=== PATIENT | female | born 1980 | race Caucasian/White ===

== ENCOUNTER 2016-07-26 00:21 | Emergency (ER) | payer MEDICAID ==
[~2016-07-26] VITALS: Ht 162.6 cm; Wt 110.0 kg
[~2016-07-26 00:21] MED LIST: ALBUS PO; CYCL-36 PO; HYDR-2768 PO; LATU80TA PO; LEVO25TA36 PO
[2016-07-26 00:38] VITALS: BP 111/68; PULSE 85; RESP 14; TEMP 98.3; O2SAT 97
[2016-07-26] MEDS ORDERED: AMOX125C CHEW (00:50)
[2016-07-26] MEDS ORDERED: IBUP800T23 PO (00:50)
[2016-07-26] MEDS ORDERED: ZIPR1CAP6 PO (00:50)
--- NOTE | 2016-07-26 01:19 | PD ---
HPI Chief Complaint: Psychiatric Symptoms Time Seen by Provider: 01:12 Travel History International Travel<30 days: No Contact w/Intl Traveler<30days: No Traveled to known affect area: No History of Present Illness HPI 35-year-old white female presents to emergency department under [place] act by PD. The patient performs superficial cutting to her right forearm. She states that she has a history of self mutilation/cutting. She states that she typically does this for attention. She had gotten into an argument with her significant other. She states that" he pushed all of my buttons". She denies any suicidal or homicidal ideation. No toxic ingestions. She does smoke cigarettes. She admits to smoking crack the day before. She denies any other drugs or alcohol. Denies . PFSH Past Medical History Narrative Medical Bipolar, asthma, chronic back pain Bipolar Disorder: Yes Diminished Hearing: No Musculoskeletal: Yes (chronic back pain) Immunizations Current: Yes Thyroid Disease: Yes Triglycerides - High: Yes ?: Not LMP: 07/25/16 : 0 Past Surgical History Narrative Surgical Cholecystectomy, tonsillectomy, bilateral myringotomy tubes. Cholecystectomy: Yes Tonsillectomy: Yes Tympanostomy Tube: Yes Social History Alcohol Use: No Tobacco Use: Yes ("e cigarette") Substance Use: Yes (crack cocaine) Allergies-Medications (Allergen,Severity, Reaction): Coded Allergies: Bee Sting (Verified Allergy, Severe, Anaphylaxis, 07/26/16) EYES PUFFY, THROAT SWELL Corticosteroids (Verified Allergy, Severe, Swelling, 07/26/16) THROAT Hydrocodone (Verified Allergy, Severe, Anaphylaxis, 07/26/16) Red Dyes - Various (Verified Allergy, Intermediate, Irritability/Anxiety, 07/26/16) Reported Meds & Prescriptions Reported Meds & Active Scripts Active Reported Ziprasidone Unknown Strength Cap Unknown Dose PO BID Ibuprofen 800 Mg Tab 800 Mg PO Q6HR PRN Amoxicillin 125 Mg Chew Unknown Dose CHEW TID Review of Systems Except as stated in HPI: all other systems reviewed are Neg Psychiatric: Positive: Mood Disorder, Substance Abuse, No: Anxiety, Depression , Suicidal Ideations, Disorder of Thought, Homicidal Ideation Physical Exam Narrative GENERAL: Morbidly obese., well-developed patient. SKIN: Warm and dry. Patient has old scars as well as new superficial suicide gesture cutting to the right forearm. There is old scars to the left forearm. HEAD: Normocephalic and atraumatic. EYES: No scleral icterus. No injection or drainage. ENT: No nasal drainage noted. Mucous membranes pink. Airway patent. NECK: Supple, trachea midline. Moves head freely without obvious discomfort. CARDIOVASCULAR: Regular rate and rhythm without murmurs, gallops, or rubs. RESPIRATORY: Breath sounds equal bilaterally. No accessory muscle use. GASTROINTESTINAL: Abdomen soft, non-tender, obese. EXTREMITIES: No cyanosis or edema. BACK: Nontender without obvious deformity. No CVA tenderness. NEURO: Patient is alert and oriented. no sensorimotor deficits. Nonfocal. Normal speech. PSYCH: No delusions. No auditory or visual hallucinations. Data Data Last Documented VS Vital Signs Date Time Temp Pulse Resp B/P Pulse Ox O2 Delivery O2 Flow Rate FiO2 07/26/16 00:43 85 14 07/26/16 00:38 98.3 111/68 97 Orders Complete Blood Count With Diff (07/26/16 01:04) Comprehensive Metabolic Panel (07/26/16 01:04) Ed Urine Pregnancytest Poc (07/26/16 01:04) Psych Screen (07/26/16 01:04) Drug Screen, Random Urine (07/26/16 01:04) Alcohol (Ethanol) (07/26/16 01:04) Salicylates (Aspirin) (07/26/16 01:04) Tylenol (Acetaminophen) (07/26/16 01:04) Labs Laboratory Tests Test 07/26/16 01:15 White Blood Count 9.6 TH/MM3 Red Blood Count 5.21 MIL/MM3 Hemoglobin 14.5 GM/DL Hematocrit 43.3 % Mean Corpuscular Volume 83.0 FL Mean Corpuscular Hemoglobin 27.8 PG Mean Corpuscular Hemoglobin 33.5 % Concent Red Cell Distribution Width 13.8 % Platelet Count 190 TH/MM3 Mean Platelet Volume 9.9 FL Neutrophils (%) (Auto) 64.2 % Lymphocytes (%) (Auto) 20.2 % Monocytes (%) (Auto) 9.5 % Eosinophils (%) (Auto) 4.9 % Basophils (%) (Auto) 1.2 % Neutrophils # (Auto) 6.2 TH/MM3 Lymphocytes # (Auto) 1.9 TH/MM3 Monocytes # (Auto) 0.9 TH/MM3 Eosinophils # (Auto) 0.5 TH/MM3 Basophils # (Auto) 0.1 TH/MM3 CBC Comment DIFF FINAL Differential Comment Sodium Level 143 MEQ/L Potassium Level 4.0 MEQ/L Chloride Level 111 MEQ/L Carbon Dioxide Level 26.6 MEQ/L Anion Gap 5 MEQ/L Blood Urea Nitrogen 26 MG/DL Creatinine 0.95 MG/DL Estimat Glomerular Filtration 68 ML/MIN Rate Random Glucose 94 MG/DL Calcium Level 8.4 MG/DL Total Bilirubin 0.3 MG/DL Aspartate Amino Transf 13 U/L (AST/SGOT) Alanine Aminotransferase 24 U/L (ALT/SGPT) Alkaline Phosphatase 55 U/L Total Protein 7.0 GM/DL Albumin 3.6 GM/DL Salicylates Level 4.1 MG/DL Urine Opiates Screen NEG Acetaminophen Level LESS THAN 2.0 MCG/ML Urine Barbiturates Screen NEG Urine Amphetamines Screen POS Urine Benzodiazepines Screen NEG Urine Cocaine Screen POS Urine Cannabinoids Screen NEG Ethyl Alcohol Level 4 MG/DL MDM Medical Decision Making Medical Screen Exam Complete: Yes Emergency Medical Condition: Yes Medical Record Reviewed: Yes Interpretation(s) Laboratory Tests Test 07/26/16 01:15 White Blood Count 9.6 TH/MM3 Red Blood Count 5.21 MIL/MM3 Hemoglobin 14.5 GM/DL Hematocrit 43.3 % Mean Corpuscular Volume 83.0 FL Mean Corpuscular Hemoglobin 27.8 PG Mean Corpuscular Hemoglobin 33.5 % Concent Red Cell Distribution Width 13.8 % Platelet Count 190 TH/MM3 Mean Platelet Volume 9.9 FL Neutrophils (%) (Auto) 64.2 % Lymphocytes (%) (Auto) 20.2 % Monocytes (%) (Auto) 9.5 % Eosinophils (%) (Auto) 4.9 % Basophils (%) (Auto) 1.2 % Neutrophils # (Auto) 6.2 TH/MM3 Lymphocytes # (Auto) 1.9 TH/MM3 Monocytes # (Auto) 0.9 TH/MM3 Eosinophils # (Auto) 0.5 TH/MM3 Basophils # (Auto) 0.1 TH/MM3 CBC Comment DIFF FINAL Differential Comment Sodium Level 143 MEQ/L Potassium Level 4.0 MEQ/L Chloride Level 111 MEQ/L Carbon Dioxide Level 26.6 MEQ/L Anion Gap 5 MEQ/L Blood Urea Nitrogen 26 MG/DL Creatinine 0.95 MG/DL Estimat Glomerular Filtration 68 ML/MIN Rate Random Glucose 94 MG/DL Calcium Level 8.4 MG/DL Total Bilirubin 0.3 MG/DL Aspartate Amino Transf 13 U/L (AST/SGOT) Alanine Aminotransferase 24 U/L (ALT/SGPT) Alkaline Phosphatase 55 U/L Total Protein 7.0 GM/DL Albumin 3.6 GM/DL Salicylates Level 4.1 MG/DL Urine Opiates Screen NEG Acetaminophen Level LESS THAN 2.0 MCG/ML Urine Barbiturates Screen NEG Urine Amphetamines Screen POS Urine Benzodiazepines Screen NEG Urine Cocaine Screen POS Urine Cannabinoids Screen NEG Ethyl Alcohol Level 4 MG/DL Differential Diagnosis MDM: High Differential diagnoses: Schizophrenia, schizoaffective disorder, bipolar, anxiety, depression, adjustment reaction, mood disorder NOS, ODD, depressive disorder NOS, dementia, dementia with agitation, psychosis NOS, substance induced mood disorder, intermittent explosive disorder, Asperger syndrome, infection,electrolyte abnormality, malingering. Narrative Course Mental health screening discussed with the patient. Psychiatric screen ordered. The patient's been medically cleared. This is adjustment reaction, self mutilation, medical clearance for psychological evaluation Diagnosis Primary Impression: Adjustment reaction Qualified Code: F43.20 - Adjustment disorder, unspecified type Additional Impressions: Self-mutilation Medical clearance for psychiatric admission Polysubstance abuse Condition: Stable John Paul Stephenson Jul 26, 2016 01:19
[2016-07-26 01:22] LABS: AUTOMATED NEUTROPHIL # 6.2 TH/MM3 (1.8-7.7); BASOPHIL # 0.1 TH/MM3 (0-0.2); BASOPHIL % 1.2 % (0.0-2.0); EOSINOPHIL # 0.5 TH/MM3 (0-0.4); EOSINOPHIL % 4.9 % (0.0-4.0); HEMATOCRIT 43.3 % (35.0-46.0); HEMO FLAGS DIFF FINAL; LYMPH % 20.2 % (9.0-44.0); LYMPHOCYTE # 1.9 TH/MM3 (1.0-4.8); MEAN CORPUSCULAR HEMOGLOBIN 27.8 PG (27.0-34.0); MEAN CORPUSCULAR HGB CONC 33.5 % (32.0-36.0); MONO % 9.5 % (0.0-8.0); NEUT % 64.2 % (16.0-70.0); PLATELET COUNT 190 TH/MM3 (150-450); RED BLOOD COUNT 5.21 MIL/MM3 (4.00-5.30); RED CELL DISTRIBUTION WIDTH 13.8 % (11.6-17.2); WHITE BLOOD COUNT 9.6 TH/MM3 (4.0-11.0)
[2016-07-26 01:33] LABS: AMPHETAMINE, URINE POS (NEG); BARBITURATES, URINE NEG (NEG); COCAINE, URINE POS (NEG)
[2016-07-26 01:39] LABS: ACETAMINOPHEN LESS THAN 2.0 MCG/ML (10.0-30.0); ALT (GPT) 24 U/L (10-53); ANION GAP 5 MEQ/L (5-15); AST (GOT) 13 U/L (15-37); BICARBONATE 26.6 MEQ/L (21.0-32.0); BLOOD UREA NITROGEN 26 MG/DL (7-18); CHLORIDE 111 MEQ/L (98-107); GLOMERULAR FILTRATION RATE 68 ML/MIN (>89); SODIUM (NA) 143 MEQ/L (136-145)
[2016-07-26 01:41] LABS: ALKALINE PHOSPHATASE 55 U/L (45-117); TOTAL BILIRUBIN ADULT 0.3 MG/DL (0.2-1.0)
[2016-07-26 09:40] VITALS: BP 128/74; PULSE 69; RESP 16; O2SAT 97
--- NOTE | 2016-07-26 10:31 | PD ---
History of Present Illness Chief Complaint: Psychiatric Symptoms Time Seen by Provider: 10:20 Travel History International Travel<30 Days: No Contact w/Intl Traveler<30days: No Known affected area: No Legal Status Legal Status: [place] Act [place] Act Signed By: Zoey Gerber [place] Act Comment: 2016 @ [id number] History of Present Illness: History of Present Illness HPI 35-year-old white female with history of PTSD as well bipolar disorder presents to emergency department under [place] act by PD. The patient performs superficial cutting to her right forearm. She states that she has a history of self mutilation/cutting. She states that she typically does this for attention. She had gotten into an argument with her significant other. She states that" he pushed all of my buttons". She denies any suicidal or homicidal ideation. No toxic ingestions. She does smoke cigarettes. She admits to smoking crack the day before. She denies any other drugs or alcohol. Denies . Patient seen. EMR reviewed. Alert and oriented, calm. States " The police gave me a choice either come to [place] or go to penit[facility]iary". I cut to get attention. Denies any suicidal or homicidal ideation. PFSH Past Medical History Bipolar Disorder: Yes Diminished Hearing: No Musculoskeletal: Yes (chronic back pain) Immunizations Current: Yes Thyroid Disease: Yes Triglycerides - High: Yes ?: Not LMP: 07/25/16 : 0 Past Surgical History Cholecystectomy: Yes Tonsillectomy: Yes Tympanostomy Tube: Yes Psychiatric History Psychiatric History Hx Psychiatric Treatment: BIPOLAR DISORDER, PTSD History of Inpatient Treatment: No Guns or firearms in home: No Social History female. Lives with a boyfriend. On disability. Hx Alcohol Use: No Hx Tobacco Use: Yes ("e cigarette") Hx Substance Use: No Hx of Substance Use Treatment: No Family Psychiatric History Denies Allergies-Medications (Allergen,Severity, Reaction): Coded Allergies: Bee Sting (Verified Allergy, Severe, Anaphylaxis, 07/26/16) EYES PUFFY, THROAT SWELL Corticosteroids (Verified Allergy, Severe, Swelling, 07/26/16) THROAT Hydrocodone (Verified Allergy, Severe, Anaphylaxis, 07/26/16) Red Dyes - Various (Verified Allergy, Intermediate, Irritability/Anxiety, 07/26/16) Reported Meds & Prescriptions Reported Meds & Active Scripts Active Reported Ziprasidone Unknown Strength Cap Unknown Dose PO BID Ibuprofen 800 Mg Tab 800 Mg PO Q6HR PRN Amoxicillin 125 Mg Chew Unknown Dose CHEW TID Exam Alert: Yes [place]: Person (ox4) Mood: Calm Affect: Appropriate Speech: Clear, Logical Eye Contact: Indirect Memory Intact: Comment (Not impaired) Hallucinations: Other (denies any) Delusions: No MDM Medical Decision Making Medical Record Reviewed: Yes Assessment/Plan Lift BA Cleared from psychiatry for follow up Orders Complete Blood Count With Diff (07/26/16 01:04) Comprehensive Metabolic Panel (07/26/16 01:04) Ed Urine Pregnancytest Poc (07/26/16 01:04) Psych Screen (07/26/16 01:04) Drug Screen, Random Urine (07/26/16 01:04) Alcohol (Ethanol) (07/26/16 01:04) Salicylates (Aspirin) (07/26/16 01:04) Tylenol (Acetaminophen) (07/26/16 01:04) Diet Regular Basic (07/26/16 Breakfast) Results Vital Signs Date Time Temp Pulse Resp B/P Pulse Ox O2 Delivery O2 Flow Rate FiO2 07/26/16 09:40 69 16 128/74 97 Room Air 07/26/16 00:43 85 14 07/26/16 00:38 98.3 85 14 111/68 97 Laboratory Tests Test 07/26/16 01:15 White Blood Count 9.6 Red Blood Count 5.21 Hemoglobin 14.5 Hematocrit 43.3 Mean Corpuscular Volume 83.0 Mean Corpuscular Hemoglobin 27.8 Mean Corpuscular Hemoglobin 33.5 Concent Red Cell Distribution Width 13.8 Platelet Count 190 Mean Platelet Volume 9.9 Neutrophils (%) (Auto) 64.2 Lymphocytes (%) (Auto) 20.2 Monocytes (%) (Auto) 9.5 Eosinophils (%) (Auto) 4.9 Basophils (%) (Auto) 1.2 Neutrophils # (Auto) 6.2 Lymphocytes # (Auto) 1.9 Monocytes # (Auto) 0.9 Eosinophils # (Auto) 0.5 Basophils # (Auto) 0.1 CBC Comment DIFF FINAL Differential Comment Sodium Level 143 Potassium Level 4.0 Chloride Level 111 Carbon Dioxide Level 26.6 Anion Gap 5 Blood Urea Nitrogen 26 Creatinine 0.95 Estimat Glomerular Filtration 68 Rate Random Glucose 94 Calcium Level 8.4 Total Bilirubin 0.3 Aspartate Amino Transf 13 (AST/SGOT) Alanine Aminotransferase 24 (ALT/SGPT) Alkaline Phosphatase 55 Total Protein 7.0 Albumin 3.6 Salicylates Level 4.1 Urine Opiates Screen NEG Acetaminophen Level LESS THAN 2.0 Urine Barbiturates Screen NEG Urine Amphetamines Screen POS Urine Benzodiazepines Screen NEG Urine Cocaine Screen POS Urine Cannabinoids Screen NEG Ethyl Alcohol Level 4 Diagnosis Primary Impression: Adjustment reaction Additional Impressions: Medical clearance for psychiatric admission Self-mutilation Polysubstance abuse Psychiatrically Cleared: Yes Condition: Stable Problem Qualifiers Primary Impression: Adjustment reaction Qualified Code: F43.20 - Adjustment disorder, unspecified type Waleska Alanis Jul 26, 2016 10:30
== END 2016-07-26 10:42 | disposition home or self-care (01) ==
LOC: NEPD 00:21
DX: Z91.5 Personal history of self-harm (principal); F19.10 Other psychoactive substance abuse, uncomplicated; F15.10 Other stimulant abuse, uncomplicated; F14.10 Cocaine abuse, uncomplicated; F43.10 Post-traumatic stress disorder, unspecified; F31.9 Bipolar disorder, unspecified; F17.290 Nicotine dependence, other tobacco product, uncomplicated
CPT/HCPCS: 80053; 80307; 84703; 85025; 99284

== ENCOUNTER 2016-11-04 15:25 | Emergency (ER) | payer MEDICAID, OTHER ==
[~2016-11-04 15:25] MED LIST changes: -ALBUS PO; +AMOX125C CHEW; -CYCL-36 PO; -HYDR-2768 PO; +IBUP800T23 PO; -LATU80TA PO; -LEVO25TA36 PO; +ZIPR1CAP6 PO
[2016-11-04 16:00] VITALS: BP 122/72; PULSE 110; RESP 18; TEMP 98.8; O2SAT 94
--- NOTE | 2016-11-04 16:32 | PD ---
HPI Chief Complaint: Psychiatric Symptoms Time Seen by Provider: 16:29 Travel History International Travel<30 days: No Contact w/Intl Traveler<30days: No Traveled to known affect area: No History of Present Illness HPI This patient was examined in the presence of a female sitter. 36-year-old female presents under [place] act initiated by the Police Department. According to her paperwork, "history of suicidal statements and temps. While arresting her boyfriend Shaun stated she would kill herself if he went to [facility] (he went to [facility])." The patient reports that she said that because she "cannot live without my man." She reports that although she said that to the police she has no desire to hurt herself or anyone else. She reports that in the past she has cut her wrists with knives for attention but never to actually try to kill herself. She has no medical complaints at this time. PFSH Past Medical History Bipolar Disorder: Yes Diminished Hearing: No Musculoskeletal: Yes (chronic back pain) Immunizations Current: Yes Thyroid Disease: Yes Triglycerides - High: Yes : 0 Past Surgical History Cholecystectomy: Yes Tonsillectomy: Yes Tympanostomy Tube: Yes Social History Alcohol Use: No Tobacco Use: Yes ("e cigarette") Substance Use: No Allergies-Medications (Allergen,Severity, Reaction): Coded Allergies: amcinonide (Unverified Allergy, Severe, Swelling, 10/05/16) THROAT beclomethasone (Unverified Allergy, Severe, Swelling, 10/05/16) THROAT bee venom protein (honey bee) (Unverified Allergy, Severe, Anaphylaxis, ) EYES PUFFY, THROAT SWELL betamethasone (Unverified Allergy, Severe, Swelling, 10/05/16) THROAT desoximetasone (Unverified Allergy, Severe, Swelling, 10/05/16) THROAT dexamethasone (Unverified Allergy, Severe, Swelling, 10/05/16) THROAT fludrocortisone (Unverified Allergy, Severe, Swelling, 10/05/16) THROAT flunisolide (Unverified Allergy, Severe, Swelling, 10/05/16) THROAT fluocinolone acetonide (Unverified Allergy, Severe, Swelling, 10/05/16) THROAT fluocinonide (Unverified Allergy, Severe, Swelling, 10/05/16) THROAT fluorometholone (Unverified Allergy, Severe, Swelling, 10/05/16) THROAT flurandrenolide (Unverified Allergy, Severe, Swelling, 10/05/16) THROAT fluticasone (Unverified Allergy, Severe, Swelling, 10/05/16) THROAT fluticasone furoate (Unverified Allergy, Severe, Swelling, 10/05/16) THROAT hydrocodone (Unverified Allergy, Severe, Anaphylaxis, 10/05/16) hydrocortisone (Unverified Allergy, Severe, Swelling, 10/05/16) THROAT methylprednisolone (Unverified Allergy, Severe, Swelling, 10/05/16) THROAT mometasone furoate (Unverified Allergy, Severe, Swelling, 10/05/16) THROAT prednisolone (Unverified Allergy, Severe, Swelling, 10/05/16) THROAT prednisone (Unverified Allergy, Severe, Swelling, 10/05/16) THROAT triamcinolone (Unverified Allergy, Severe, Swelling, 10/05/16) THROAT red dye (Unverified Allergy, Intermediate, Irritability/Anxiety, 10/05/16) Reported Meds & Prescriptions Reported Meds & Active Scripts Active Reported Ziprasidone Unknown Strength Cap Unknown Dose PO BID Ibuprofen 800 Mg Tab 800 Mg PO Q6HR PRN Amoxicillin 125 Mg Chew Unknown Dose CHEW TID Review of Systems Except as stated in HPI: all other systems reviewed are Neg Physical Exam Narrative GENERAL: Well-developed well-nourished female in no acute distress SKIN: Warm and dry. Old linear scars noted to the forearms and wrists. HEAD: Atraumatic. Normocephalic. EYES: Pupils equal and round. No scleral icterus. No injection or drainage. ENT: No nasal bleeding or discharge. Mucous membranes pink and moist. NECK: Trachea midline. No JVD. CARDIOVASCULAR: Regular rate and rhythm. No murmur appreciated. RESPIRATORY: No accessory muscle use. Clear to auscultation. Breath sounds equal bilaterally. GASTROINTESTINAL: Abdomen soft, non-tender, nondistended. Hepatic and splenic margins not palpable. MUSCULOSKELETAL: No obvious deformities. No clubbing. No cyanosis. No edema. NEUROLOGICAL: Awake and alert. No obvious cranial nerve deficits. Motor grossly within normal limits. Normal speech. PSYCHIATRIC: Appropriate mood and affect; insight and judgment normal. Data Data Last Documented VS Vital Signs Date Time Temp Pulse Resp B/P (MAP) Pulse Ox O2 Delivery O2 Flow Rate FiO2 11/04/16 16:00 98.8 110 18 122/72 (89) 94 Orders Orders Complete Blood Count With Diff (11/04/16 16:30) Comprehensive Metabolic Panel (11/04/16 16:30) Ed Urine Pregnancytest Poc (11/04/16 16:30) Psych Screen (11/04/16 16:30) Drug Screen, Random Urine (11/04/16 16:30) Alcohol (Ethanol) (11/04/16 16:30) Diet Regular Basic (11/04/16 Dinner) Labs Laboratory Tests Test 11/04/16 17:10 White Blood Count 13.5 TH/MM3 Red Blood Count 5.31 MIL/MM3 Hemoglobin 14.8 GM/DL Hematocrit 45.2 % Mean Corpuscular Volume 85.1 FL Mean Corpuscular Hemoglobin 27.8 PG Mean Corpuscular Hemoglobin Concent 32.7 % Red Cell Distribution Width 14.2 % Platelet Count 226 TH/MM3 Mean Platelet Volume 9.4 FL Neutrophils (%) (Auto) 69.3 % Lymphocytes (%) (Auto) 16.9 % Monocytes (%) (Auto) 8.5 % Eosinophils (%) (Auto) 4.6 % Basophils (%) (Auto) 0.7 % Neutrophils # (Auto) 9.4 TH/MM3 Lymphocytes # (Auto) 2.3 TH/MM3 Monocytes # (Auto) 1.2 TH/MM3 Eosinophils # (Auto) 0.6 TH/MM3 Basophils # (Auto) 0.1 TH/MM3 CBC Comment DIFF FINAL Differential Comment Blood Urea Nitrogen 18 MG/DL Creatinine 1.08 MG/DL Random Glucose 86 MG/DL Total Protein 7.2 GM/DL Albumin 3.6 GM/DL Calcium Level 8.7 MG/DL Alkaline Phosphatase 57 U/L Aspartate Amino Transf (AST/SGOT) 20 U/L Alanine Aminotransferase (ALT/SGPT) 28 U/L Total Bilirubin 0.8 MG/DL Sodium Level 139 MEQ/L Potassium Level 4.1 MEQ/L Chloride Level 107 MEQ/L Carbon Dioxide Level 26.3 MEQ/L Anion Gap 6 MEQ/L Estimat Glomerular Filtration Rate 58 ML/MIN Ethyl Alcohol Level LESS THAN 3 MG/DL MDM Medical Decision Making Medical Screen Exam Complete: Yes Emergency Medical Condition: Yes Medical Record Reviewed: Yes Differential Diagnosis Adjustment reaction, acute psychosis, major depressive disorder, depressive disorder not otherwise specified, substance-induced mood disorder Narrative Course 36-year-old female here under [place] act. Mental health screening discussed with the patient. Psychiatric screen ordered. Laboratory is unremarkable. Urine test is negative. She is medically cleared for psychiatric disposition. Diagnosis Primary Impression: Medical clearance for psychiatric admission Sheldon Thompson Nov 04, 2016 16:31
[2016-11-04 17:52] LABS: AUTOMATED NEUTROPHIL # 9.4 TH/MM3 (1.8-7.7); BASOPHIL # 0.1 TH/MM3 (0-0.2); BASOPHIL % 0.7 % (0.0-2.0); EOSINOPHIL # 0.6 TH/MM3 (0-0.4); EOSINOPHIL % 4.6 % (0.0-4.0); HEMATOCRIT 45.2 % (35.0-46.0); HEMO FLAGS DIFF FINAL; LYMPH % 16.9 % (9.0-44.0); LYMPHOCYTE # 2.3 TH/MM3 (1.0-4.8); MEAN CELL VOLUME 85.1 FL (80.0-100.0); MEAN CORPUSCULAR HEMOGLOBIN 27.8 PG (27.0-34.0); MEAN CORPUSCULAR HGB CONC 32.7 % (32.0-36.0); MONO % 8.5 % (0.0-8.0); NEUT % 69.3 % (16.0-70.0); PLATELET COUNT 226 TH/MM3 (150-450); RED BLOOD COUNT 5.31 MIL/MM3 (4.00-5.30); RED CELL DISTRIBUTION WIDTH 14.2 % (11.6-17.2); WHITE BLOOD COUNT 13.5 TH/MM3 (4.0-11.0)
[2016-11-04 18:05] LABS: ANION GAP 6 MEQ/L (5-15); AST (GOT) 20 U/L (15-37); BICARBONATE 26.3 MEQ/L (21.0-32.0); BLOOD UREA NITROGEN 18 MG/DL (7-18); CHLORIDE 107 MEQ/L (98-107); GLOMERULAR FILTRATION RATE 58 ML/MIN (>89); POTASSIUM 4.1 MEQ/L (3.5-5.1); SODIUM (NA) 139 MEQ/L (136-145)
[2016-11-04 18:06] LABS: ALT (GPT) 28 U/L (10-53)
[2016-11-04 18:08] LABS: ALKALINE PHOSPHATASE 57 U/L (45-117); TOTAL BILIRUBIN ADULT 0.8 MG/DL (0.2-1.0)
[2016-11-04 18:15] LABS: ALCOHOL LESS THAN 3 MG/DL (0-5)
[2016-11-04 19:59] VITALS: BP 149/83; PULSE 107; RESP 22; TEMP 98.1; O2SAT 97
[2016-11-04] MEDS ORDERED: OLANZapine IM 10 MG VIAL IM ONE (21:15)
[2016-11-04 23:09] VITALS: RESP 18
[2016-11-05 02:42] VITALS: BP 110/64; PULSE 72; RESP 16
[2016-11-05 06:50] VITALS: BP 115/65; PULSE 81; RESP 16; O2SAT 96
--- NOTE | 2016-11-05 08:28 | PD ---
Physical Exam Narrative Informed by psych nurse that pt's [place] Act has been lifted by psychiatrist Dr. Yi. Pt was seen by previous provider and medically cleared for psych evaluation. Pt will be discharged with referral to [facility]. Data Data Last Documented VS Vital Signs Date Time Temp Pulse Resp B/P (MAP) Pulse Ox O2 Delivery O2 Flow Rate FiO2 11/05/16 06:50 81 16 115/65 (82) 96 11/04/16 19:59 98.1 Room Air Orders Orders Complete Blood Count With Diff (11/04/16 16:30) Comprehensive Metabolic Panel (11/04/16 16:30) Ed Urine Pregnancytest Poc (11/04/16 16:30) Psych Screen (11/04/16 16:30) Drug Screen, Random Urine (11/04/16 16:30) Alcohol (Ethanol) (11/04/16 16:30) Diet Regular Basic (11/04/16 Dinner) Olanzapine Inj (Zyprexa Inj) (11/04/16 21:15) Diet Regular Basic (11/05/16 Breakfast) Labs Laboratory Tests Test 11/04/16 17:10 White Blood Count 13.5 TH/MM3 Red Blood Count 5.31 MIL/MM3 Hemoglobin 14.8 GM/DL Hematocrit 45.2 % Mean Corpuscular Volume 85.1 FL Mean Corpuscular Hemoglobin 27.8 PG Mean Corpuscular Hemoglobin Concent 32.7 % Red Cell Distribution Width 14.2 % Platelet Count 226 TH/MM3 Mean Platelet Volume 9.4 FL Neutrophils (%) (Auto) 69.3 % Lymphocytes (%) (Auto) 16.9 % Monocytes (%) (Auto) 8.5 % Eosinophils (%) (Auto) 4.6 % Basophils (%) (Auto) 0.7 % Neutrophils # (Auto) 9.4 TH/MM3 Lymphocytes # (Auto) 2.3 TH/MM3 Monocytes # (Auto) 1.2 TH/MM3 Eosinophils # (Auto) 0.6 TH/MM3 Basophils # (Auto) 0.1 TH/MM3 CBC Comment DIFF FINAL Differential Comment Blood Urea Nitrogen 18 MG/DL Creatinine 1.08 MG/DL Random Glucose 86 MG/DL Total Protein 7.2 GM/DL Albumin 3.6 GM/DL Calcium Level 8.7 MG/DL Alkaline Phosphatase 57 U/L Aspartate Amino Transf (AST/SGOT) 20 U/L Alanine Aminotransferase (ALT/SGPT) 28 U/L Total Bilirubin 0.8 MG/DL Sodium Level 139 MEQ/L Potassium Level 4.1 MEQ/L Chloride Level 107 MEQ/L Carbon Dioxide Level 26.3 MEQ/L Anion Gap 6 MEQ/L Estimat Glomerular Filtration Rate 58 ML/MIN Ethyl Alcohol Level LESS THAN 3 MG/DL MDM Supervised Visit with [facility]: Yes Diagnosis Primary Impression: Adjustment disorder Qualified Codes: F43.20 - Adjustment disorder, unspecified Patient Instructions: General Instructions Departure Forms: Tests/Procedures Additional Instruction: Please follow up with [facility] as instructed. Return to the ED if symptoms worsen. Med/Other Pt SpecificInfo: No Change to Meds Disposition: 01 DISCHARGE HOME Condition: Stable Hansa Bhardwaj DO Nov 05, 2016 08:28
[2016-11-05 08:32] VITALS: BP 115/65; PULSE 81; RESP 16
--- NOTE | 2016-11-05 08:33 | PD.PSY.CON ---
Provisional Diagnosis Admission Date Date of consultation 11/05/2016 Roslyn I. 1. Adjustment disorder, unspecified 2. Cocaine abuse History of Present Illness Service Psychiatry Consult Requested By Emergency department Reason for Consult [place] act Primary Care Physician Mignon Domingo MD HPI Ms. Dunn is a 36-year-old female with a reported history of bipolar disorder who presents under a [place] act alleging that the patient threatened suicide while her boyfriend was being arrested I law enforcement. Reviewing the electronic medical record, I note the patient was seen in July of this year by the psychiatric nurse practitioner after engaging in nonsuicidal self- injurious behavior. Patient seen and examined. Chart reviewed. Case discussed with nurse in the J- pod. There has been no evidence of any suicidality or homicidality while the patient has been under observation in the J-[facility]. On my examination today, the patient says that she was upset at seeing that her boyfriend might be arrested and issued the suicidal threat as alleged by law enforcement, but she insists that this threat was baseless. She had no desire to kill herself at the time and denies any such desire now. She says that her boyfriend was not, in fact, arrested, and she would like to return to him now. She denies any suicidal or homicidal ideation, intent or plan on direct questioning and contracts for safety. No depressive or hypomanic/manic symptoms elicited at this time. She denies any audiovisual hallucinations, and I can elicit no delusional material. The remainder of psychiatric ROS is negative. She is requesting discharge from the psychiatric emergency room this morning. Past psychiatric history: The patient reports a history of bipolar disorder. Chart suggests that history of adjustment reaction, polysubstance abuse and NSSIB. Patient follows psychiatrically at [facility] but has been off of psychotropic medications for a month because she ran out. She denies any recent psychiatric admissions. She denies any history of suicide attempts. She does have a history of nonsuicidal self-injurious behavior. Family history: Patient reports that she is unsure of her family history as she was adopted. Chemical dependency history: The patient admits to ongoing use of cocaine. A urine toxicology was not obtained on this presentation, but I note that her U tox has been positive for cocaine in the past. Social history: The patient lives with her boyfriend, Josep. She is . She has no children. She is high school educated. She is disabled. She denies any access to guns or firearms. Denies any shinto or spiritual beliefs. Review of Systems Except as stated in HPI: all other systems reviewed are Neg Past Family Social History Coded Allergies: amcinonide (Unverified Allergy, Severe, Swelling, 10/05/16) THROAT beclomethasone (Unverified Allergy, Severe, Swelling, 10/05/16) THROAT bee venom protein (honey bee) (Unverified Allergy, Severe, Anaphylaxis, ) EYES PUFFY, THROAT SWELL betamethasone (Unverified Allergy, Severe, Swelling, 10/05/16) THROAT desoximetasone (Unverified Allergy, Severe, Swelling, 10/05/16) THROAT dexamethasone (Unverified Allergy, Severe, Swelling, 10/05/16) THROAT fludrocortisone (Unverified Allergy, Severe, Swelling, 10/05/16) THROAT flunisolide (Unverified Allergy, Severe, Swelling, 10/05/16) THROAT fluocinolone acetonide (Unverified Allergy, Severe, Swelling, 10/05/16) THROAT fluocinonide (Unverified Allergy, Severe, Swelling, 10/05/16) THROAT fluorometholone (Unverified Allergy, Severe, Swelling, 10/05/16) THROAT flurandrenolide (Unverified Allergy, Severe, Swelling, 10/05/16) THROAT fluticasone (Unverified Allergy, Severe, Swelling, 10/05/16) THROAT fluticasone furoate (Unverified Allergy, Severe, Swelling, 10/05/16) THROAT hydrocodone (Unverified Allergy, Severe, Anaphylaxis, 10/05/16) hydrocortisone (Unverified Allergy, Severe, Swelling, 10/05/16) THROAT methylprednisolone (Unverified Allergy, Severe, Swelling, 10/05/16) THROAT mometasone furoate (Unverified Allergy, Severe, Swelling, 10/05/16) THROAT prednisolone (Unverified Allergy, Severe, Swelling, 10/05/16) THROAT prednisone (Unverified Allergy, Severe, Swelling, 10/05/16) THROAT triamcinolone (Unverified Allergy, Severe, Swelling, 10/05/16) THROAT red dye (Unverified Allergy, Intermediate, Irritability/Anxiety, 10/05/16) Past Medical History See electronic medical record Reported Medications Ziprasidone (Ziprasidone) Unknown Strength Cap, PO BID, #60 CAP 0 Refills 07/26/16 Ibuprofen (Ibuprofen) 800 Mg Tab, 800 MG PO Q6HR Y for PAIN, #40 TAB 0 Refills 07/26/16 Amoxicillin (Amoxicillin) 125 Mg Chew, CHEW TID for Infection, TAB 0 Refills 07/26/16 Not presently on psychotropics per patient Patient's Strengths (min. 2) Contracts for safety. Verbally fluent. Physical Exam Physical exam completed by ED provider. On my examination today, the patient appears to be in no acute physical distress. She is clinically sober. No abnormal motor movements noted. Labs and vitals reviewed: Vital Signs Vital Signs Date Time Temp Pulse Resp B/P (MAP) Pulse Ox O2 Delivery O2 Flow Rate FiO2 11/05/16 06:50 81 16 115/65 (82) 96 11/04/16 19:59 98.1 Room Air Lab Results Test 11/04/16 17:10 White Blood Count 13.5 TH/MM3 Red Blood Count 5.31 MIL/MM3 Hemoglobin 14.8 GM/DL Hematocrit 45.2 % Mean Corpuscular Volume 85.1 FL Mean Corpuscular Hemoglobin 27.8 PG Mean Corpuscular Hemoglobin Concent 32.7 % Red Cell Distribution Width 14.2 % Platelet Count 226 TH/MM3 Mean Platelet Volume 9.4 FL Neutrophils (%) (Auto) 69.3 % Lymphocytes (%) (Auto) 16.9 % Monocytes (%) (Auto) 8.5 % Eosinophils (%) (Auto) 4.6 % Basophils (%) (Auto) 0.7 % Neutrophils # (Auto) 9.4 TH/MM3 Lymphocytes # (Auto) 2.3 TH/MM3 Monocytes # (Auto) 1.2 TH/MM3 Eosinophils # (Auto) 0.6 TH/MM3 Basophils # (Auto) 0.1 TH/MM3 CBC Comment DIFF FINAL Differential Comment Blood Urea Nitrogen 18 MG/DL Creatinine 1.08 MG/DL Random Glucose 86 MG/DL Total Protein 7.2 GM/DL Albumin 3.6 GM/DL Calcium Level 8.7 MG/DL Alkaline Phosphatase 57 U/L Aspartate Amino Transf (AST/SGOT) 20 U/L Alanine Aminotransferase (ALT/SGPT) 28 U/L Total Bilirubin 0.8 MG/DL Sodium Level 139 MEQ/L Potassium Level 4.1 MEQ/L Chloride Level 107 MEQ/L Carbon Dioxide Level 26.3 MEQ/L Anion Gap 6 MEQ/L Estimat Glomerular Filtration Rate 58 ML/MIN Ethyl Alcohol Level LESS THAN 3 MG/DL Mental Status Examination Patient is in hospital attire. Patient is fairly well groomed and maintaining basic hygiene. Patient is awake and alert and oriented person and hospital at least. No evidence of delirium. No motor abnormalities appreciated. Speech is within normal limits for rate, tone, volume. Memory grossly intact on clinical exam. Mood is fair. Affect is blunted. Thought process linear. No delusions elicited. Denies audiovisual hallucinations and does not appear internally stimulated. Denies suicidal or homicidal ideation, intent, or plan and contracts for safety. Insight and judgment likely chronically poor. Assessment & Plan Problem List: (1) Adjustment disorder ICD Codes: F43.20 - Adjustment disorder, unspecified Status: Acute (2) Cocaine abuse ICD Codes: F14.10 - Cocaine abuse, uncomplicated Assessment & Plan 36-year-old female with psychiatric history as detailed above who presents under a [place] act. On my examination today, the patient denies any suicidal or homicidal ideation. She is meg for safety. She said she was suicidal to MIGUEL because she was upset that her boyfriend might be arrested. There is no evidence of any severely unstable mental illness as defined under the Juarez act in this patient at this time. She appears to be attending to her basic needs. Synthesizing this information and weighing the relevant factors, I motorsports technician that the patient does not presently meet the Juarez act criteria. I have lifted the Juarez act. The patient is requesting discharge from the ER this morning. I have counseled the patient regarding warning signs for need to return to the psychiatric emergency room as part of a general safety plan. I have recommended outpatient psychiatric and chem dep follow-up, and the nurse will provide the appropriate referrals. Patient is otherwise psychiatrically clear for discharge from the ED. Thank you very much for this consultation. Request HC Surrog/Guard Advoc?: No Problem Qualifiers (1) Adjustment disorder: Qualified Codes: F43.20 - Adjustment disorder, unspecified Akil Wayne MD Nov 05, 2016 08:33
== END 2016-11-05 12:08 | disposition home or self-care (01) ==
LOC: NEDAMB 15:25 → NEPJ 11-05 12:08
DX: F43.20 Adjustment disorder, unspecified (principal); Z79.899 Other long term (current) drug therapy
CPT/HCPCS: 80053; 80307; 85025; 96372